=== PATIENT | female | born 1975 | race Caucasian/White ===

== ENCOUNTER 2017-01-10 17:36 | Emergency (ER) | payer OTHER ==
[2017-01-10 19:13] VITALS: BP 113/87
--- NOTE | 2017-01-10 20:05 | ED ---
GI/ HPI - HPI Summary HPI Summary: 41yr old with frequency of urination, right flank pain and scant blood in urine when wiping today. Denies fever and chills. Denies vaginal bleeding as she has had a prior uterine ablation. No chance of . She has no pain presently. SHe took cranberry juice and water and felt better. - History of Current Complaint Chief Complaint: UCGU Time Seen by Provider: 01/10/17 19:14 Stated Complaint: URINARY - Allergy/Home Medications Allergies/Adverse Reactions: Allergies Allergy/AdvReac Type Severity Reaction Status Date / Time No Known Allergies Allergy Verified 01/10/17 19:13 PMH/Surg Hx/FS Hx/Imm Hx Endocrine/Hematology History: Denies: Hx Anticoagulant Therapy - Cancer History Hx Chemotherapy: No Hx Radiation Therapy: No - Surgical History Surgery Procedure, Year, and Place: Tubal ligation. breast lump removed in august 2015 benign. 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, Hx Shingles - 2004 Denies: Traveled Outside the [place] in Last 30 Days - Family History Known Family History: Positive: Unknown - Social History Alcohol Use: Rare Substance Use Type: Reports: None Smoking Status (MU): Never Smoked Tobacco Review of Systems Constitutional: Negative Eyes: Negative Positive: frequency, flank pain All Other Systems Reviewed And Are Negative: Yes Physical Exam Triage Information Reviewed: Yes Vital Signs On Initial Exam: Initial Vitals Temp Pulse Resp BP Pulse Ox 98.9 F 87 12 113/87 100 01/10/17 19:05 01/10/17 19:05 01/10/17 19:05 01/10/17 19:05 01/10/17 19:05 Vital Signs Reviewed: Yes Appearance: Positive: Well-Appearing, No Pain Distress, Well-Nourished Skin: Positive: Warm Head/Face: Positive: Normal Head/Face Inspection Eyes: Positive: Normal, EOMI Respiratory/Lung Sounds: Positive: Clear to Auscultation Cardiovascular: Positive: Normal, RRR Abdomen Description: Positive: Nontender. Negative: CVA Tenderness (R), CVA Tenderness (L) Musculoskeletal: Positive: Normal Neurological: Positive: Normal, Sensory/Motor Intact, Alert, Oriented to Person Place, Time, CN Intact II-III Diagnostics - Vital Signs Vital Signs Temp Pulse Resp BP Pulse Ox 01/10/17 19:05 98.9 F 87 12 113/87 100 - Laboratory Lab Results: Lab Results 01/10/17 Range/Units 19:30 POC Urine Color Other POC Urine Clarity Slightly cloudy POC Urine pH 5.5 (5-9) POC Ur Specif Halma 1.010 (1.010-1.030) POC Urine Protein Negative (Negative) POC Ur Glucose (UA) Negative (Negative) POC Urine Ketones Negative (Negative) POC Urine Blood 3+ H (Negative) POC Urine Nitrite Negative (Negative) POC Urine Bilirubin Negative (Negative) POC Urine Urobilinogen 0.2 (Negative) POC U Leukocyte Esteras 2+ H (Negative) Lab Statement: Any lab studies that have been ordered have been reviewed, and results considered in the medical decision making process. GIGU Course/Dx - Course Course Of Treatment: 41 yr old with UTI, DC home on bactrim - Diagnoses Provider Diagnoses: UTI (urinary tract infection) Discharge - Discharge Plan Condition: Good Disposition: HOME Prescriptions: Sulfamethox/Trimethoprim DS* [Bactrim DS 800/160 TAB*] 1 tab PO BID #14 tab Referrals: Non Staff,Doctor [Primary Care Provider] - [facility] [Outside]
== END 2017-01-10 20:21 | disposition home or self-care (01) ==
LOC: UCCORT 17:36
DX: N39.0 Urinary tract infection, site not specified (principal)
CPT/HCPCS: 81003; 87077; 87086; 87186; 99212; G0463

== ENCOUNTER 2017-06-06 17:24 | Emergency (ER) | payer OTHER ==
[2017-06-06 17:39] VITALS: BP 118/89
--- NOTE | 2017-06-06 18:08 | RAD ---
INDICATION: Forearm pain COMPARISON: None TECHNIQUE: AP and lateral views were obtained. FINDINGS: There is no acute fracture or dislocation. There is no significant soft tissue swelling. IMPRESSION: NO ACUTE BONY FINDINGS
--- NOTE | 2017-06-06 18:42 | UC ---
Upper Extremity HPI - HPI Summary HPI Summary: TWO DAYS OF WORSENING RIGHT FOREARM PAIN. SWELLING AND TENDERNESS IN DORSAL RIGHT FOREARM. PAIN WITH PRESSURE AND FLEXION/EXTENSION OF WRIST. 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 Hx Last Menstrual Period: ABLATION DONE Onset/Duration: Sudden Onset, Lasting Days, Still Present Severity Initially: Moderate Severity Currently: Moderate Pain Intensity: 5 Pain Scale Used: 0-10 Numeric Character: Aching, Spasmodic Aggravating Factor(s): Movement, Flexion, Extension Associated Signs And Symptoms: Positive: Swelling Related History: Dominant Hand Right - Risk Factors Non-Orthopedic Risk Factor: Negative DVT Risk Factors: Negative Septic Arthritis Risk Factor: Negative - Allergies/Home Medications Allergies/Adverse Reactions: Allergies Allergy/AdvReac Type Severity Reaction Status Date / Time No Known Allergies Allergy Verified 06/06/17 17:30 PMH/Surg Hx/FS Hx/Imm Hx Previously Healthy: Yes Other History Of: Negative For: Anticoagulant Therapy - Surgical History Surgical History: Yes Surgery Procedure, Year, and Place: Tubal ligation. breast lump removed in august 2015 benign. ABLATION - Family History Known Family History: Positive: Unknown - Social History Occupation: Employed Full-time Lives: With Family Alcohol Use: Rare Substance Use Type: None Smoking Status (MU): Never Smoked Tobacco - Immunization History Most Recent Influenza Vaccination: NONE 2016 Review of Systems Constitutional: Negative Skin: Negative Eyes: Negative ENT: Negative Respiratory: Negative Cardiovascular: Negative Gastrointestinal: Negative Genitourinary: Negative Motor: Negative Neurovascular: Negative Musculoskeletal: Arthralgia, Myalgia Neurological: Negative Psychological: Negative Is Patient Immunocompromised?: No All Other Systems Reviewed And Are Negative: Yes Physical Exam Triage Information Reviewed: Yes Appearance: Well-Appearing, Well-Nourished, Pain Distress Vital Signs: Initial Vital Signs Temp 98.7 F 06/06/17 17:31 Pulse 95 06/06/17 17:31 Resp 16 06/06/17 17:31 BP 118/89 06/06/17 17:31 Pulse Ox 99 06/06/17 17:31 Vital Signs Reviewed: Yes Eye Exam: Normal ENT Exam: Normal ENT: Positive: Normal ENT inspection, TMs normal Dental Exam: Normal Neck exam: Normal Neck: Positive: Supple, Nontender Respiratory Exam: Normal Respiratory: Positive: Chest non-tender, Lungs clear, Normal breath sounds, No respiratory distress Cardiovascular Exam: Normal Cardiovascular: Positive: RRR, No Murmur, Pulses Normal Abdominal Exam: Normal Musculoskeletal Exam: Normal Neurological Exam: Normal Psychological Exam: Normal Skin Exam: Normal Upper Extremity Course/Dx - Differential Dx/Diagnosis Differential Diagnosis/HQI/PQRI: Strain, Sprain Provider Diagnoses: RIGHT FOREARM TENDINITIS Discharge - Discharge Plan Condition: Stable Disposition: HOME Prescriptions: Cyclobenzaprine TAB* [Flexeril 10 MG TAB*] 10 mg PO TID PRN #12 tab PRN Reason: Spasms Patient Education Materials: Tendinitis (ED) Referrals: Inocencio Barrera MD [Medical Doctor] - Non Staff,Doctor [Primary Care Provider] - Additional Instructions: PHYSICAL THERAPY REFERRAL: You have been prescribed physical therapy. Treatments may include stretching, exercise, application of heat or cold, and other modalities. After an injury, PT can reduce swelling and pain. In recovery, PT is used to restore mobility and strength. Your specific treatment goals are: __x___ Reduction of Swelling (EGS, US, ice as needed) __x___ Pain Reduction (EGS, US, ice as needed) __x___ TENS Pack Fitting and Instruction Wound Hydrotherapy Preservation of Mobility __x__ Buddhism of Mobility __x___ Work or Sports Hardening This instruction sheet also serves as your PHYSICAL THERAPY REFERRAL! Please take it with you to the therapist, so he/she will be aware of your diagnosis and treatment plan. You may see the physical therapist of your choice for these treatments, but may wish to check with your insurance to be sure the provider you select is covered. It's important to see the doctor to whom you have been referred for follow up.
== END 2017-06-06 18:30 | disposition home or self-care (01) ==
LOC: UCCORT 17:24
DX: M77.9 Enthesopathy, unspecified (principal)
CPT/HCPCS: 99213; G0463

== ENCOUNTER 2018-02-05 13:45 | Emergency (ER) | payer OTHER ==
--- NOTE | 2018-02-05 15:04 | UC ---
UC General HPI - HPI Summary HPI Summary: pt c/o 2 day hx frequent-urgent urination. no burining. similar s/s's in past, c /w uti. no fever, abdominal pain or vaginal d/c. - History of Current Complaint Stated Complaint: URINARY Time Seen by Provider: 02/05/18 14:55 Hx Obtained From: Patient Hx Last Menstrual Period: ABLATION DONE Onset/Duration: Gradual Onset Timing: Constant Aggravating: nothing Alleviating: large amounts of water and cranberry juice Associated Signs & Symptoms: Negative: Abdominal Pain, Fever - Allergy/Home Medications Allergies/Adverse Reactions: Allergies Allergy/AdvReac Type Severity Reaction Status Date / Time No Known Allergies Allergy Verified 06/06/17 17:30 PMH/Surg Hx/FS Hx/Imm Hx - Additional Past Medical History Additional PMH: MRSA Other History Of: Negative For: Anticoagulant Therapy - Surgical History Surgical History: Yes Surgery Procedure, Year, and Place: Tubal ligation. breast lump removed in august 2015 benign. ABLATION - Family History Known Family History: Positive: Unknown - Social History Occupation: Employed Full-time Lives: With Family Alcohol Use: Rare Substance Use Type: None Smoking Status (MU): Never Smoked Tobacco - Immunization History Most Recent Influenza Vaccination: NONE 2017 Vaccination Up to Date: Yes Review of Systems Constitutional: Negative Skin: Negative Eyes: Negative ENT: Negative Respiratory: Negative Cardiovascular: Negative Gastrointestinal: Negative Genitourinary: Frequency, Urgency Motor: Negative Neurovascular: Negative Musculoskeletal: Negative Neurological: Negative Psychological: Negative Is Patient Immunocompromised?: No All Other Systems Reviewed And Are Negative: Yes Physical Exam Triage Information Reviewed: Yes Appearance: Well-Appearing Eyes: Positive: Conjunctiva Clear ENT: Positive: Normal ENT inspection Neck: Positive: Supple, Nontender, No Lymphadenopathy Respiratory: Positive: Lungs clear, Normal breath sounds Cardiovascular: Positive: RRR, No Murmur Abdomen Description: Positive: Nontender, No Organomegaly, Soft. Negative: CVA Tenderness (R), CVA Tenderness (L) Bowel Sounds: Positive: Present Musculoskeletal: Positive: ROM Intact Neurological: Positive: Alert Psychological: Positive: Age Appropriate Behavior Skin Exam: Normal Diagnostics - Laboratory Diagnostic Studies Completed/Ordered: U/A= LEUKOCYTES AND BLOOD, CULTURE PENDING Course/Dx - Course Course Of Treatment: U/A= + FOR BLD AND LEUKOCYTES - Differential Dx - Multi-Symptom Provider Diagnoses: UTI Discharge - Sign-Out/Discharge Documenting (check all that apply): Discharge/Admit/Transfer - Discharge Plan Condition: Stable Disposition: HOME Prescriptions: Nitrofurantoin Monohyd/M-Cryst [Macrobid 100 mg Capsule] 100 mg PO BID 5 Days # 10 cap Patient Education Materials: Urinary Tract Infection in Women (DC) Referrals: Non Staff,Doctor [Medical Doctor] - Grady Fuentes DO [Doctor of Osteopathy] - 7 Days - Billing Disposition and Condition Condition: STABLE Disposition: HOME
[2018-02-05 15:05] VITALS: BP 138/75
== END 2018-02-05 15:34 | disposition home or self-care (01) ==
LOC: UCCORT 13:45
DX: N39.0 Urinary tract infection, site not specified (principal); B96.20 Unspecified Escherichia coli [E. coli] as the cause of diseases classified elsewhere; B95.1 Streptococcus, group B, as the cause of diseases classified elsewhere
CPT/HCPCS: 81003; 87077; 87086; 87186; 99212; G0463

== ENCOUNTER 2018-12-20 08:04 | Emergency (ER) | payer OTHER ==
[2018-12-20 09:06] VITALS: BP 126/81
--- NOTE | 2018-12-20 09:46 | UC ---
Complaint Female HPI - HPI Summary HPI Summary: 43-year-old woman comes in with a chief complaint of urinary frequency and burning with urination for the last 2 days. No fevers or chills. Does feel some pressure and suprapubic area. No flank pain. Feels well otherwise. Is been taking [id number] Azo which does help some with the symptoms. She's had a UTI in the past and this reminds her of having a UTI. - History Of Current Complaint Chief Complaint: UCGU Stated Complaint: URINARY Time Seen by Provider: 12/20/18 09:38 Hx Last Menstrual Period: s/p uterine ablation Pain Intensity: 4 - Allergies/Home Medications Allergies/Adverse Reactions: Allergies Allergy/AdvReac Type Severity Reaction Status Date / Time No Known Allergies Allergy Verified 12/20/18 09:03 PMH/Surg Hx/FS Hx/Imm Hx Previously Healthy: Yes Other History Of: Negative For: Anticoagulant Therapy - Surgical History Surgical History: Yes Surgery Procedure, Year, and Place: Tubal ligation. breast lump removed in august 2015 benign. [place] - Family History Known Family History: Positive: Unknown - Social History Alcohol Use: Rare Substance Use Type: None Smoking Status (MU): Never Smoked Tobacco - Immunization History Most Recent Influenza Vaccination: NONE 2016 Vaccination Up to Date: Yes Review of Systems All Other Systems Reviewed And Are Negative: Yes Constitutional: Positive: Negative Skin: Positive: Negative Eyes: Positive: Negative ENT: Positive: Negative Respiratory: Positive: Negative Cardiovascular: Positive: Negative Gastrointestinal: Positive: Negative Genitourinary: Positive: Dysuria, Frequency, Urgency Motor: Positive: Negative Neurovascular: Positive: Negative Musculoskeletal: Positive: Negative Neurological: Positive: Negative Psychological: Positive: Negative Is Patient Immunocompromised?: No Physical Exam Triage Information Reviewed: Yes Appearance: Well-Appearing, No Pain Distress, Well-Nourished Vital Signs: Initial Vital Signs Temp 97.9 F 12/20/18 09:00 Pulse 86 12/20/18 09:00 Resp 16 12/20/18 09:00 BP 126/81 12/20/18 09:00 Pulse Ox 100 12/20/18 09:00 Vital Signs Reviewed: Yes Eye Exam: Normal Eyes: Positive: Conjunctiva Clear Neck exam: Normal Neck: Positive: Supple Respiratory: Positive: Lungs clear, Normal breath sounds, No respiratory distress Cardiovascular: Positive: RRR Abdomen Description: Positive: Nontender, Soft. Negative: CVA Tenderness (R), CVA Tenderness (L) Musculoskeletal Exam: Normal Musculoskeletal: Positive: Strength Intact, ROM Intact Neurological Exam: Normal Neurological: Positive: Alert, Muscle Tone Normal Psychological Exam: Normal Psychological: Positive: Age Appropriate Behavior Skin Exam: Normal Complaint Female Dx - Differential Dx/Diagnosis Provider Diagnosis: UTI (urinary tract infection) Discharge - Sign-Out/Discharge Documenting (check all that apply): Patient Departure All imaging exams completed and their final reports reviewed: No Studies - Discharge Plan Condition: Stable Disposition: HOME Prescriptions: Nitrofurantoin Monohyd/M-Cryst [Macrobid 100 mg Capsule] 100 mg PO BID #10 cap Patient Education Materials: Urinary Tract Infection in Women (ED) Referrals: [facility] [Outside] Additional Instructions: FOLLOW UP WITH YOUR DOCTOR IF NOT COMPLETELY IMPROVED. GET RECHECKED FOR ANY WORSENING OF YOUR CONDITION OR QUESTIONS OR CONCERNS. - Billing Disposition and Condition Condition: STABLE Disposition: Home
== END 2018-12-20 09:55 | disposition home or self-care (01) ==
LOC: UCCORT 08:04
DX: N39.0 Urinary tract infection, site not specified (principal)
CPT/HCPCS: 81003; 84702; 87077; 87086; 87088; 87186; 99212; G0463

== ENCOUNTER 2019-06-28 16:27 | Emergency (ER) | payer OTHER ==
[2019-06-28 17:12] VITALS: BP 127/91
--- NOTE | 2019-06-28 17:17 | UC ---
Complaint Female HPI - HPI Summary HPI Summary: 43-year-old female presents with onset of dysuria, frequency, urgency, and hematuria this morning. Associated with some mild lower back pain with urination. Has taken 2 doses of Azo today with some relief in symptoms. Denies fever, chills, abdominal pain, nausea, vomiting, vaginal discharge, abnormal bleeding, or dyspareunia. - History Of Current Complaint Chief Complaint: UCBackPain Stated Complaint: BACK PAIN, URINARY Time Seen by Provider: 06/28/19 17:00 Hx Obtained From: Patient Hx Last Menstrual Period: 06/14/19 Pain Intensity: 5 - Allergies/Home Medications Allergies/Adverse Reactions: Allergies Allergy/AdvReac Type Severity Reaction Status Date / Time No Known Allergies Allergy Verified 06/28/19 17:01 Home Medications: Home Medications Pumpkin Seed Extract/Soy Germ [Azo Bladder Control/Go-Le] 1 cap PO PRN 06/28/19 [History] PMH/Surg Hx/FS Hx/Imm Hx Previously Healthy: Yes - Denies significant PMH Other History Of: Negative For: Anticoagulant Therapy - Surgical History Surgical History: Yes Surgery Procedure, Year, and Place: Tubal ligation. breast lump removed in august 2015 benign. ABLATION-UTERINE - Family History Known Family History: Positive: Unknown - Social History Occupation: Employed Full-time Lives: With Family Alcohol Use: Rare Substance Use Type: None Smoking Status (MU): Never Smoked Tobacco - Immunization History Most Recent Influenza Vaccination: NONE 2016 Vaccination Up to Date: Yes Review of Systems All Other Systems Reviewed And Are Negative: Yes Constitutional: Negative: Fever, Chills Respiratory: Positive: Negative Cardiovascular: Positive: Negative Gastrointestinal: Negative: Abdominal Pain, Vomiting, Nausea Genitourinary: Positive: Dysuria, Hematuria, Frequency, Urgency. Negative: Vaginal/Penile Discharge, Abnormal Bleeding Musculoskeletal: Positive: Negative Neurological: Positive: Negative Is Patient Immunocompromised?: No Physical Exam - Summary Physical Exam Summary: GENERAL APPEARANCE: Well developed, well nourished, alert and cooperative, and appears to be in no acute distress. CARDIAC: Normal S1 and S2. No S3, S4 or murmurs. Rhythm is regular. There is no peripheral edema, cyanosis or pallor. Extremities are warm and well perfused. Capillary refill is less than 2 seconds. Peripheral pulses intact. LUNGS: Clear to auscultation without rales, rhonchi, wheezing or diminished breath sounds. ABDOMEN: Positive bowel sounds. Soft, nondistended, nontender. No guarding or rebound. No masses or hepatosplenomegally. No CVA tenderness. MUSKULOSKELETAL: ROM intact to all extremities. No joint erythema or tenderness. Normal muscular development. Normal gait. SKIN: Skin normal color, texture and turgor with no lesions or eruptions. Triage Information Reviewed: Yes Vital Signs: Initial Vital Signs Temp 99.1 F 06/28/19 17:03 Pulse 96 06/28/19 17:03 Resp 18 06/28/19 17:03 BP 127/91 06/28/19 17:03 Pulse Ox 99 06/28/19 17:03 Vital Signs Reviewed: Yes Complaint Female Dx - Course Course Of Treatment: 43-year-old female presents with onset of dysuria, frequency, urgency, and hematuria this morning. Associated with some mild lower back pain with urination. Has taken 2 doses of Azo today with some relief in symptoms. Denies fever, chills, abdominal pain, nausea, vomiting, vaginal discharge, abnormal bleeding, or dyspareunia. Afebrile. Vital signs stable. Patient's exam was overall unremarkable. Because should the patient took Azo we were unable to perform a [id number] urinalysis but based on the patient's symptoms I will treat empirically for a urinary tract infection pending urine culture results. She is to start Bactrim DS 1 tablet twice a day 5 days. Recommending that she continue using the Azo for the next 2 days. She is to follow-up with primary care provider in 3-5 days if symptoms are not improving. Anticipatory guidance and warning symptoms were reviewed with the patient. Verbalizes understanding and agrees with plan of care. - Differential Dx/Diagnosis Differential Diagnosis/HQI/PQRI: Renal Colic, Urinary Tract Infection Provider Diagnosis: UTI (urinary tract infection) Discharge ED - Sign-Out/Discharge Documenting (check all that apply): Patient Departure All imaging exams completed and their final reports reviewed: No Studies - Discharge Plan Condition: Stable Disposition: HOME Prescriptions: Sulfamethox/Trimethoprim DS* [Bactrim DS 800/160 TAB*] 1 tab PO BID #10 tab Patient Education Materials: Urinary Tract Infection in Women (ED) Referrals: No Primary Care Phys,NOPCP [Primary Care Provider] - Additional Instructions: Because you took Azo we were unable to do a urine test in the clinic today however based on your symptoms we will start you on an antibiotic to treat for a possible urinary tract infection. We will send a urine culture today to see what bacteria grow out and make sure the antibiotic you were prescribed is appropriate to treat the infection. It may take 48-72 hours to get these results. We will contact you if there is any change in your treatment plan. Start Bactrim DS 1 tab twice a day for 5 days. You may continue to use Azo for the next 2 days to help with the discomfort. Drink plenty of fluids. To help prevent urinary tract infections: 1) Be sure to wipe from front to back. 2) Urinate immediately after any sexual intercourse. 3) Avoid taking bubble baths. Follow up with your primary care provider in 3-5 days if symptoms persist. Seek immediate medical attention in the emergency room if you develop fever greater than 100.5 F, have severe abdominal pain, persistent vomiting, or any worsening of symptoms. - Billing Disposition and Condition Condition: STABLE Disposition: Home - Attestation Statements Provider Attestation: This patient was not seen by me. I was available for consult. YAQUELIN
--- NOTE | 2019-07-01 12:47 | UC ---
- Progress Note Progress Note: Preliminary urine culture report reviewed: Citrobacter Koseri 50,000-75,000 CFU per mL Patient is being treated with Bactrim. Await final culture sensitivity report No change in plan Course/Dx - Diagnoses Provider Diagnoses: UTI (urinary tract infection) Discharge ED - Sign-Out/Discharge Documenting (check all that apply): Post-Discharge Follow Up All imaging exams completed and their final reports reviewed: No Studies - Discharge Plan Condition: Stable Disposition: HOME Prescriptions: Sulfamethox/Trimethoprim DS* [Bactrim DS 800/160 TAB*] 1 tab PO BID #10 tab Patient Education Materials: Urinary Tract Infection in Women (ED) Referrals: No Primary Care Phys,NOPCP [Primary Care Provider] - Additional Instructions: Because you took Azo we were unable to do a urine test in the clinic today however based on your symptoms we will start you on an antibiotic to treat for a possible urinary tract infection. We will send a urine culture today to see what bacteria grow out and make sure the antibiotic you were prescribed is appropriate to treat the infection. It may take 48-72 hours to get these results. We will contact you if there is any change in your treatment plan. Start Bactrim DS 1 tab twice a day for 5 days. You may continue to use Azo for the next 2 days to help with the discomfort. Drink plenty of fluids. To help prevent urinary tract infections: 1) Be sure to wipe from front to back. 2) Urinate immediately after any sexual intercourse. 3) Avoid taking bubble baths. Follow up with your primary care provider in 3-5 days if symptoms persist. Seek immediate medical attention in the emergency room if you develop fever greater than 100.5 F, have severe abdominal pain, persistent vomiting, or any worsening of symptoms. - Billing Disposition and Condition Condition: STABLE Disposition: Home
== END 2019-06-28 17:30 | disposition home or self-care (01) ==
LOC: UCCORT 16:27
DX: N39.0 Urinary tract infection, site not specified (principal)
CPT/HCPCS: 87077; 87086; 87186; 99212; G0463